=== PATIENT | female | born 1950 | race Caucasian/White ===

== ENCOUNTER 2019-04-27 09:52 | Day surgery (SDC) | payer MEDICARE ==
[2019-04-24 14:27] LABS: BASOPHILS % (AUTO) 0.3 % (0-1); EOSINOPHILS # (AUTO) 0.1 X10'3 (0-0.9); EOSINOPHILS % (AUTO) 1.6 % (0-6); LYMPHOCYTES % (AUTO) 24.4 % (21-51); MEAN CORPUSCULAR HEMOGLOBIN 31.7 PG (27.0-31.0); MEAN CORPUSCULAR VOLUME 93.2 FL (78-98); MONOCYTES # (AUTO) 0.4 X10'3 (0-0.9); MONOCYTES % (AUTO) 9.9 % (2-12); NEUTROPHILS # (AUTO) 2.7 X10'3 (1.8-7.7); NEUTROPHILS % (AUTO) 63.8 % (42-75); PRE OP HEMATOCRIT 39.8 % (35.0-45.0); PRE OP HEMOGLOBIN 13.5 g/dL (12.0-16.0); PRE OP PLATELET COUNT 274 X10'3 (140-440); RED BLOOD COUNT 4.28 X10'6 (4.20-5.60); RED CELL DISTRIBUTION WIDTH 13.7 % (11.5-14.5)
[2019-04-24 14:37] LABS: ALBUMIN/GLOBULIN RATIO 1.1 (1.1-1.5); ALKALINE PHOSPHATASE 108 IU/L (46-116); BLOOD UREA NITROGEN 14 MG/DL (7-18); BUN/CREATININE RATIO 15.1 (6.6-38.0); CALCIUM 8.8 MG/DL (8.5-10.1); CHLORIDE 105 MMOL/L (99-107); CREATININE 0.93 MG/DL (0.40-0.90); PRE OP ALT 26 U/L (30-65); PRE OP ANION GAP 10 (8-16); PRE OP AST 15 U/L (10-37); PRE OP BILIRUB, TOTAL 0.3 MG/DL (0.0-1.0); PRE OP GLUCOSE 126 MG/DL (70-104); PRE OP POTASSIUM 4.2 MMOL/L (3.4-5.1); PRE OP SODIUM 140 MMOL/L (135-145); TOTAL CARBON DIOXIDE 24.7 MMOL/L (24-32); TOTAL PROTEIN 7.6 G/DL (6.4-8.2); eGFR 60 ML/MIN
[~2019-04-27] VITALS: Ht 160 cm; Wt 64.4 kg
[2019-04-27] VITALS (10 sets, daily range): BP systolic 113–138; BP diastolic 53–84
[~2019-04-27 09:52] MED LIST: LOSA25TA96 PO; MESSAGE TO NURSING PO ONE; cefazolin/dext.iso 2gm/50ml 50 ML IV ONE; famotidine 20mg tablet PO ONE; ringers solution, lacted 1,000 ML IV SCH
[2019-04-27] MEDS ORDERED: scopolamine 1.5mg patch.TD72 TD ONE (11:55)
[2019-04-27] MEDS ORDERED: aprepitant 40mg capsule PO ONE (11:55)
--- NOTE | 2019-04-27 11:55 | NUR ---
PT REFUSED HER EMEND. (MED WAS ALREADY SCANNED). MED RETURNED TO [facility]
--- NOTE | 2019-04-27 13:21 | NUR ---
PT HAS EXTERNAL FIXATOR ON L WRIST, NO PREP DONE HERE IN [facility]. Addendum: 04/27/19 at 1334 by Pati Thompson RN Amended: Links added.
[2019-04-27] MEDS ORDERED: BUPIVAcaine/PF 2.5mg/ml (0.25%) 10ml vial ONE (13:35)
[2019-04-27] MEDS ORDERED: cloNIDine hcl/PF 100mcg/ml inj ONE (13:41)
[2019-04-27] MEDS ORDERED: ROPIVAcaine 0.5% (5mg/ml) 30ml vial ONE (13:42)
[2019-04-27] MEDS ORDERED: dexamethasone sod phosphate 10mg/ml inj ONE (13:42)
[2019-04-27] MEDS ORDERED: sevoflurane 250ml liquid IH ONE (13:42)
[2019-04-27] MEDS ORDERED: fentaNYL/PF 50MCG/1 ML 2ML syringe ONE (13:43)
[2019-04-27] MEDS ORDERED: propofol inj 20 ML IV ONE (13:44)
[2019-04-27] MEDS ORDERED: midazolam 2 mg/2 ml injection ONE (13:44)
[2019-04-27] MEDS ORDERED: meperidine/PF 25mg/ml syringe IV PRN ×3 (14:40)
[2019-04-27] MEDS ORDERED: morphine 4 MG/ML inj SYRINge IV PRN ×2 (14:40)
[2019-04-27] MEDS ORDERED: ondansetron/PF 4mg/2ml inj IV PRN (14:40)
[2019-04-27] MEDS ORDERED: proCHLORperazine 10 MG/2 ml inj IV PRN (14:40)
[2019-04-27] MEDS ORDERED: ringers solution, lacted 1,000 ML IV SCH (14:40)
[2019-04-27] MEDS ORDERED: ondansetron/PF 4mg/2ml inj ONE (14:49)
--- NOTE | 2019-04-27 15:09 | NUR ---
Received from OR via , accompanied by Anesthesiologist DR SHEN and report given by Anesthesiolgist. AWAKENS TO VOICE. VITALS STABLE. DRESSINGS DI. RUE IN SIMPLE SLING. FINGERS WARM AND PINK.
--- NOTE | 2019-04-27 16:09 | NUR ---
AWAKE AND ORIENTED. VITALS STABLE. DRESSIMG DI. BRENDA PAIN. HOME WITH HER SPOUSE AT THIS TIME.
== END 2019-04-27 16:39 | disposition home or self-care (01) ==
LOC: PAS 09:52
PROVIDERS: ATTEND Orthopaedic Surgery Hand Surgery
DX: S52.511A Displaced fracture of right radial styloid process, initial encounter for closed fracture (principal); I10 Essential (primary) hypertension; M17.11 Unilateral primary osteoarthritis, right knee; G89.18 Other acute postprocedural pain; Z87.891 Personal history of nicotine dependence; Z79.899 Other long term (current) drug therapy; Z72.89 Other problems related to lifestyle; X58.XXXA Exposure to other specified factors, initial encounter; Y93.89 Activity, other specified; Y92.89 Other specified places as the place of occurrence of the external cause; Y99.8 Other external cause status
CPT/HCPCS: 20694; 25609; 36415; 64417; 80053; 82948; 85025; A6222; C1713; J0735; J1100; J2250; J2405; J2704; J3010; J3490; J8501; A4215; A4565; A4618; A6449; J2795; J7120